=== PATIENT | female | born 1980 | race Caucasian/White ===

== ENCOUNTER 2024-10-23 12:30 | Outpatient (RCR) | payer BC, SELFPAY ==
--- NOTE | 2024-09-04 16:15 | OTOPEVAL1 ---
Assessment and note entered by Juanita Cooper, OT Evaluation Information Assessment Status Evaluation Diagnosis CVA ICD-10 Condition Codes (OT) Pain in left hand M79.642,Generalized muscle weakness M62.81 Other ICD-10 Condition Codes ( I63.9 OT) Onset 07/19/24 Subjective Information Pt. reports having stroke in July of 2024, pt. was in acute rehab for 14 days. Pt. returned home after this. Pt. states, I'm left handed, there are a lot of thing I can't do. Pt. reports she has difficulty opening jars, button her pants, tying her shoes, shaving her L armpit can't assist in management of granddaughters care including changing her diaper. Pt. is L hand dominant, reports she has to compensate for all activities with use of R UE. Pt. was previously independent in all activities, including working fulltime at [employer] and driving. Pt. was previously cooking, now can only make food in microwave. Pt. states she wants to be able to go back to work, be able to case picker her granddaughter. Reported Pain Level Pain Score 7: Self Report Assessment OT Clinical Summary Pt. is 44 year old F, presenting with limitations in L UE strength, ROM, coordination, dexterity, fine motor control, and overall functional use, as well as pain from swelling mechanical dysfunction as a result of CVA 07/19/24. Pt. demonstrates ROM WFL at shoulder and elbow, but reports inconsistency in functional use and fatigues easily, with wrist and hand displaying decreased ROM, with mild flexor tone and swelling. Pt. 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 Pt. reports significant decrease incapacity to participate in ADLs, IADLs, work, and functional capacity in general. Pt. will benefit from skilled OT services including therapeutic exercise, neuroreducation, sensory integrative techniques, and therapeutic activities to regain greatest functional use of L UE. Plan of Care Interventions Therapeutic Exercise,Manual Therapy,Neuro Re- education,Therapeutic Activities,Sensory Integrative Techniques OT Services Indicated Yes These treatments will address the objective and functional deficits as defined above. The patient will be advanced safely and appropriately in order for the patient to progress towards his/her prior level of function. Additional exercises will be introduced and as well as a comprehensive home exercise program upon discharge, if needed, ?to ensure carryover of functional gains achieved in the clinic. This treatment plan has been reviewed and agreement upon by the patient.
--- NOTE | 2024-09-04 16:16 | OPREHPOC ---
Outpatient Therapy Plan of Care This is a Multidisciplinary Plan of Care that may contain components documented by all disciplines (PT, OT, and ST.) OT Problem 1 OT Problem #1 Knowledge Deficit OT Goal 1 Goal / Goal Update Pt. will demonstrate independent participation in HEP Target Visit 10 OT Problem 2 OT Problem #2 Impaired Strength OT Goal 1 Goal / Goal Update Pt. will increase overall L UE strength as measured by increased electrophysiology nurse practitioner strength to 10 lbs Target Visit 10 OT Problem 3 OT Problem #3 Impaired Coordination OT Goal 1 Goal / Goal Update Pt. will demonstrate ability to manipulate small objects for functional activities with L fingers as demonstrated by completion of 9 hole peg test Target Visit 20 OT Problem 4 OT Problem #4 Impaired Range of Motion OT Goal 1 Goal / Goal Update Pt. will demonstrate increased active ROM in all joints by 10 degrees Target Visit 20
--- NOTE | 2024-09-12 11:11 | BUSTOPEVAL1 ---
Assessment and note entered by Indu Fine, SEQUINS SPOOLER Evaluation Information Assessment Status Evaluation Diagnosis CVA ICD-10 Condition Codes (ST) Cognitive Deficits following cerebral infarction I69.31 Subjective Information Patient was referred for a skilled ST evaluation due to continued cognitive difficulties post CVA on 07-19-24. She was in acute rehab for 14 days and then returned home with her daughter who she is currently living with due to significant difficulties physically post stroke. The patient reported that she in unable to work due to her weakness in her left arm and hand along with cognitive-communication deficits. She continues to have difficulty with her memory impacting her ability to function with least amount of assistance and return safely to PLOF. She stated that she feels her memory is starting to improve daily but continues to struggle to recall recent events. Her daughter reported that she often has to repeat herself due to patient being unable to recall what was told to her. Reported Pain Level Pain Score 5: Self Report Pain Score 7: Self Report Assessment ST Clinical Summary Patient was referred for a skilled ST evaluation due to continued difficulties with cognition post CVA on 07-19-24. She was in acute rehab for 14 days and then moved in with her daughter due to difficulties cognitively and physically post CVA. 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 At this time she is unable to work and continues to have difficulty with memory and function in her left hand. Her overall goal is to return to her job and be able to live independently again. Throughout the assessment the patient spoke at the conversational level with occasional pauses due to difficulty with attention and auditory processing skills. The MMSE was given during the session with a score of 29/30. The [facility] Adult Language evaluation was given with deficits noted in; following 3 step directions, moderate and complex paragraph retention, and reading comprehension at the complex sentence level. The Cognitive evaluation was given with mild deficits noted in immediate memory, recent memory, and temporal orientation skills. The patient currently feels that her memory continues to impact her ability to safely and functionally carry out daily tasks. She reported that this is a big change from her PLOF. She often gets frustrated when unable to remember something and feels that she is always asking others to repeat things in order for her to remember. Skilled ST treatment is recommended to target high level problem solving, attention, organizational skills, and memory to continue to improve patient's cognitive-communication function to return to PLOF with least amount of assistance . Recommendation for skilled ST treatment 1-2x/ week for 10 visits. Plan of Care Interventions Treatment for Cognitive Function Treatment Frequency and 1-2x/week for 10 visits Duration These treatments will address the objective and functional deficits as defined above. The patient will be advanced safely and appropriately in order for the patient to progress towards his/her prior level of function. Additional exercises will be introduced and as well as a comprehensive home exercise program upon discharge, if needed, ?to ensure carryover of functional gains achieved in the clinic. This treatment plan has been reviewed and agreement upon by the patient.
--- NOTE | 2024-09-12 11:14 | OPREHPOC ---
Outpatient Therapy Plan of Care This is a Multidisciplinary Plan of Care that may contain components documented by all disciplines (PT, OT, and ST.) OT Problem 1 OT Problem #1 Knowledge Deficit OT Goal 1 Goal / Goal Update Pt. will demonstrate independent participation in HEP Target Visit 10 OT Problem 2 OT Problem #2 Impaired Strength OT Goal 1 Goal / Goal Update Pt. 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 will demonstrate ability to manipulate small objects for functional activities with L fingers as demonstrated by completion of 9 hole peg test Target Visit 20 OT Problem 4 OT Problem #4 Impaired Range of Motion OT Goal 1 Goal / Goal Update Pt. will demonstrate increased active ROM in all joints by 10 degrees Target Visit [address] Problem #[address] Goal 1 Goal / Goal Update 1. Patient will participate in home programming to promote carryover/generalization of skills to home environment. Target Visit [address] Problem #[address] Goal 1 Goal / Goal Update Memory: 1. Patient will complete immediate and recent memory tasks with 90% accuracy and minimal cues. 2. Patient will complete delayed memory tasks ( recalling information after a few minutes, recalling words with delay in presentation) with 90% accuracy and minimal cues. 3. Patient will complete moderate/complex paragraph retention tasks with 90% accuracy and minimal cues to improve cognitive skills for more complex tasks. Target Visit [address] Problem #[address] Goal 1 Goal / Goal Update Reading comprehension: 1. Patient will complete complex sentence level comprehension tasks with 90% accuracy and minimal cues. Functional problem solving/mathematical: 1. Patient will complete moderate/complex functional mathematical tasks with 90% accuracy and minimal cues. Target Visit 10
--- NOTE | 2024-09-27 13:34 | OPREHPOC ---
Outpatient Therapy Plan of Care This is a Multidisciplinary Plan of Care that may contain components documented by all disciplines (PT, OT, and ST.) PT Problem 1 PT Problem #1 Knowledge Deficit PT Goal 1 Goal / Goal Update *independent with HEP Target Visit 8 PT Problem 2 PT Problem #2 Impaired Strength PT Goal 1 Goal / Goal Update 1*increase strength of L LE to 4+/5, to improve gait and balance skills 2* with standing L toe taps on 5 step, 10 reps, no toe catch 3* standing to sitting transfer without plopping into chair/good control of motion Target Visit 8 PT Problem 3 PT Problem #3 Impaired Functional Mobility PT Goal 1 Goal / Goal Update 1* 2 minute walking test distance of 550' 2* up/down 12 steps without hand railing, independent 3* Mckeon balance/gait score of 56/56, to improve mobility and safety 4* with walking, pt ambulate in straight path, reports NO hitting mendoza on the L side Target Visit 8 OT Problem 1 OT Problem #1 Knowledge Deficit OT Goal 1 Goal / Goal Update Pt. will demonstrate independent participation in HEP Target Visit 10 OT Problem 2 OT Problem #2 Impaired Strength OT Goal 1 Goal / Goal Update Pt. will increase overall L UE strength as measured by increased supervisor edging strength to 10 lbs Target Visit 10 OT Problem 3 OT Problem #3 Impaired Coordination OT Goal 1 Goal / Goal Update Pt. will demonstrate ability to manipulate small objects for functional activities with L fingers as demonstrated by completion of 9 hole peg test Target Visit 20 OT Problem 4 OT Problem #4 Impaired Range of Motion OT Goal 1 Goal / Goal Update Pt. will demonstrate increased active ROM in all joints by 10 degrees Target Visit [address] Problem #[address] Goal 1 Goal / Goal Update 1. Patient will participate in home programming to promote carryover/generalization of skills to home environment. Target Visit [address] Problem #[address] Goal 1 Goal / Goal Update Memory: 1. Patient will complete immediate and recent memory tasks with 90% accuracy and minimal cues. 2. Patient will complete delayed memory tasks ( recalling information after a few minutes, recalling words with delay in presentation) with 90% accuracy and minimal cues. 3. Patient will complete moderate/complex paragraph retention tasks with 90% accuracy and minimal cues to improve cognitive skills for more complex tasks. Target Visit [address] Problem #[address] Goal 1 Goal / Goal Update Reading comprehension: 1. Patient will complete complex sentence level comprehension tasks with 90% accuracy and minimal cues. Functional problem solving/mathematical: 1. Patient will complete moderate/complex functional mathematical tasks with 90% accuracy and minimal cues. Target Visit 10
--- NOTE | 2024-09-27 13:34 | PTOPEVAL1 ---
Assessment and note entered by Tiffany Hernandez, PT Evaluation Information Assessment Status Evaluation ICD-10 Condition Codes (PT) Difficulty Walking R26.2,Abnormalities of gait and mobility R26.9,Weakness R53.1 Other ICD-10 Condition Codes ( cerebral infarct I 63.9 PT) Onset 07-19-24 Subjective Information had CVA, when having carotid artery surgery; L side weakness. had in pt rehab, d/c to home 08-15-24; have not been doing any leg exercises; with walking, bump into mendoza on her L side, have not had any falls; L hand dominant; use cane when going out on uneven ground. 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 She also has OT and Speech Therapy services. Prior to onset, she worked and was living independently. Now, she is living with her daughter and is not working or driving. She reports use of L knee brace and cane PRN--did not have them for the evaluation session. With the evaluation, she has decreased strength and motor control of L LE; single leg standing on R is 8 and L is 3 seconds and unsteady; Mckeon balance score of 49/56; 2 minute walking test distance of 475'; gait pattern with decreased stance phase on L and decreased motor control of trunk and hips, with lateral trunk motion; on stairs uses one hand railing. Skilled PT services are indicated for therapeutic exercises and activities to increase LE strength, gait and balance skills, to improve mobility and activity tolerance. Education for HEP and safety with mobility. Plan of Care Interventions Gait Training,Neuro Re-education,Patient/Caregiver Education,Therapeutic Activities,Therapeutic Exercise PT Services Indicated Yes Treatment Frequency and 1-2x/wk for 8 visits Duration These treatments will address the objective and functional deficits as defined above. The patient will be advanced safely and appropriately in order for the patient to progress towards his/her prior level of function. Additional exercises will be introduced and as well as a comprehensive home exercise program upon discharge, if needed, ?to ensure carryover of functional gains achieved in the clinic. This treatment plan has been reviewed and agreement upon by the patient.
--- NOTE | 2024-10-18 12:28 | OTOPPROG ---
Assessment and note entered by Juanita Cooper, OT Evaluation Information Assessment Status Progress Diagnosis CVA ICD-10 Condition Codes (OT) Pain in left hand M79.642,Generalized muscle weakness M62.81 Other ICD-10 Condition Codes ( I63.9 OT) Onset 07/19/24 Subjective Information Pt. reports, I fell last night, I was walking to the bathroom and I fell on my hand (points to L hand), I have knot in my elbow too. Pt. initially reports not sure, when asked how she feels she is progressing and what activities are getting easier. Pt. then recalled changing her granddaughters diaper, carrying her granddaughter down the stairs with both hands, stating she first took steps then sat down on the stairs to scoot down while holding her. Pt. reports she was able to catch a neighbors cat who was loose. Pt. reports she is still compensating with R hand, but has been able to make herself a burrito and spread cream cheese on a bagel, using R hand to perform the fine motor parts of task while stabilizing with L hand and UE. Pt. reports she wore her resting hand splint on 2 nights sine she initally brought it in, but displays frustration when asked if she remembers if it affects her pain , stating I don't remember, my short term doesn' t work. I don't remember if I have pain or not. I reports she does not complete putty hand exercises at home because it is too painful Assessment OT Clinical Summary Pt. is 44 year old F, presents for 8th visit for progress note with continued limitation in L UE strength, ROM, coordination, dexterity, fine motor control, and overall functional use, as well as pain, as a result of CVA 07/19/24. Pt. demonstrates limited increase in measurable strength with standardized testing such as with dynamometer or 9 hole peg test, or use of resistance putty due to pain with use but displays increasing tolerance for functional use during activities including use of various hand prehension types for picking up small items such as 2 cm foam blocks. Pt. continues to demonstrates ROM WFL at shoulder and elbow, but reports inconsistency in functional use and fatigues easily, with increasing but inconsistent wrist, hand, and finger ROM with focused attention, despite with mild flexor tone and swelling. Pt. will benefit from skilled OT services including therapeutic exercise, neuroreducation, sensory integrative techniques, and therapeutic activities to regain greatest functional use of L UE. Plan of Care Interventions Therapeutic Exercise,Manual Therapy,Neuro Re- education,Therapeutic Activities,Sensory Integrative Techniques OT Services Indicated Yes Treatment Frequency and 2 x/week for 10 visits Duration These treatments will address the objective and functional deficits as defined above. The patient will be advanced safely and appropriately in order for the patient to progress towards his/her prior level of function. Additional exercises will be introduced and as well as a comprehensive home exercise program upon discharge, if needed, ?to ensure carryover of functional gains achieved in the clinic. This treatment plan has been reviewed and agreement upon by the patient.
--- NOTE | 2024-10-18 12:32 | OPREHPOC ---
Outpatient Therapy Plan of Care This is a Multidisciplinary Plan of Care that may contain components documented by all disciplines (PT, OT, and ST.) PT Problem 1 PT Problem #1 Knowledge Deficit PT Goal 1 Goal / Goal Update *independent with HEP Target Visit 8 PT Problem 2 PT Problem #2 Impaired Strength PT Goal 1 Goal / Goal Update 1*increase strength of L LE to 4+/5, to improve gait and balance skills 2* with standing L toe taps on 5 step, 10 reps, no toe catch 3* standing to sitting transfer without plopping into chair/good control of motion Target Visit 8 PT Problem 3 PT Problem #3 Impaired Functional Mobility PT Goal 1 Goal / Goal Update 1* 2 minute walking test distance of 550' 2* up/down 12 steps without hand railing, independent 3* Mckeon balance/gait score of 56/56, to improve mobility and safety 4* with walking, pt ambulate in straight path, reports NO hitting mendoza on the L side Target Visit 8 OT Problem 1 OT Problem #1 Knowledge Deficit OT Goal 1 Goal / Goal Update 1) Pt. will demonstrate independent participation in HEP 10/18 Progress 1) Not met, pt reports putty causes pain in hands, continue with goal Target Visit 20 Progress Not Met OT Problem 2 OT Problem #2 Impaired Strength OT Goal 1 Goal / Goal Update 1) Pt. will increase overall L UE strength as measured by increased applications tester strength to 10 lbs 10/18 Progress 1) Not met, continue with goal Target Visit 30 Progress Not Met OT Problem 3 OT Problem #3 Impaired Coordination OT Goal 1 Goal / Goal Update 1)Pt. will demonstrate ability to manipulate small objects for functional activities with L fingers as demonstrated by completion of 9 hole peg test 10/18 Progress 1) Not met, continue with goal Target Visit 20 OT Problem 4 OT Problem #4 Impaired Range of Motion OT Goal 1 Goal / Goal Update Pt. will demonstrate increased active ROM in all joints by 10 degrees Target Visit 20 OT Problem 5 OT Problem #5 Pain OT Goal 1 Goal / Goal Update New Goal 10/18 1) Pt. will report wear of resting hand split 5/7 nights per week and use of active assist/passive ROM exercises to reduce pain to 2/10 4/[address] Problem #[address] Goal 1 Goal / Goal Update 1. Patient will participate in home programming to promote carryover/generalization of skills to home environment. Target Visit [address] Problem #[address] Goal 1 Goal / Goal Update Memory: 1. Patient will complete immediate and recent memory tasks with 90% accuracy and minimal cues. 2. Patient will complete delayed memory tasks ( recalling information after a few minutes, recalling words with delay in presentation) with 90% accuracy and minimal cues. 3. Patient will complete moderate/complex paragraph retention tasks with 90% accuracy and minimal cues to improve cognitive skills for more complex tasks. Target Visit [address] Problem #[address] Goal 1 Goal / Goal Update Reading comprehension: 1. Patient will complete complex sentence level comprehension tasks with 90% accuracy and minimal cues. Functional problem solving/mathematical: 1. Patient will complete moderate/complex functional mathematical tasks with 90% accuracy and minimal cues. Target Visit 10
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
--- NOTE | 2024-10-25 12:35 | PCSTNOTE ---
Patient called & cancelled scheduled appointment this date due to sick
--- NOTE | 2024-10-30 12:56 | PCPTNOTE ---
Cancelled, pt in hospital d/t seizure activity pr front office. AKS
--- NOTE | 2024-11-01 13:05 | PCSTNOTE ---
Patient called & cancelled scheduled appointment this date due to hospital
--- NOTE | 2024-11-15 12:30 | STOPDC ---
Assessment and note entered by Elva Strauss PUMP INSTALLATION AND SERVICER Evaluation Information Assessment Status Discharge - Pt Not Present Assessment ST Clinical Summary Patient was referred for a skilled ST evaluation due to continued difficulties with cognition post CVA on 07-19-24. She was in acute rehab for 14 days and then moved in with her daughter due to difficulties cognitively and physically post CVA. 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 At this time she is unable to work and continues to have difficulty with memory and function in her left hand. Her overall goal is to return to her job and be able to live independently again. Throughout the assessment the patient spoke at the conversational level with occasional pauses due to difficulty with attention and auditory processing skills. The MMSE was given during the session with a score of 29/30. The [facility] Adult Language evaluation was given with deficits noted in; following 3 step directions, moderate and complex paragraph retention, and reading comprehension at the complex sentence level. The Cognitive evaluation was given with mild deficits noted in immediate memory, recent memory, and temporal orientation skills. The patient currently feels that her memory continues to impact her ability to safely and functionally carry out daily tasks. She reported that this is a big change from her PLOF. She often gets frustrated when unable to remember something and feels that she is always asking others to repeat things in order for her to remember. Skilled ST treatment is recommended to target high level problem solving, attention, organizational skills, and memory to continue to improve patient's cognitive-communication function to return to PLOF with least amount of assistance . Recommendation for skilled ST treatment 1-2x/ week for [address] visits. [address] Services Indicated Yes
--- NOTE | 2024-11-17 15:04 | PTOPDC ---
Assessment and note entered by Tiffany Hernandez, PT Assessment Status Discharge - Pt Not Present ICD-10 Condition Codes (PT) Difficulty Walking R26.2,Abnormalities of gait and mobility R26.9,Weakness R53.1 Other ICD-10 Condition Codes ( cerebral infarct I 63.9 PT) Onset 07-19-24 Subjective Information pt was not seen this date. Assessment PT Clinical Summary Sterling has received 5 PT sessions, from September 27 to October 23. She then called/canceled 2 appointments due to illness and then admitted to the hospital. Discharge PT due to hospitalization. The goals were not addressed. Plan of Care PT Services Indicated No
--- NOTE | 2024-11-20 08:15 | OTOPDC ---
Assessment and note entered by Juanita Cooper, OT Evaluation Information Assessment Status Discharge - Pt Not Present Diagnosis CVA ICD-10 Condition Codes (OT) Pain in left hand M79.642,Generalized muscle weakness M62.81 Other ICD-10 Condition Codes ( I63.9 OT) Onset 07/19/24 Subjective Information Pt. not present. Discharging due to hospitalization. Assessment OT Clinical Summary PT has been seen for 8 OT sessions, from 09/04/24- 10/18/24, pt. admitted to hospital due to illness. Discharging on this date due to hospitalization. OT goals not met. Plan of Care OT Services Indicated No
== END 2024-11-20 10:57 | disposition home or self-care (01) ==
LOC: ANHPT 12:30
PROVIDERS: PCP Emergency Medicine; Visit Provider Emergency Medicine
DX: I63.9 Cerebral infarction, unspecified (principal); I10 Essential (primary) hypertension; M79.642 Pain in left hand; M62.81 Muscle weakness (generalized)
CPT/HCPCS: 92507; 92523; 96125; 97110; 97112; 97116; 97140; 97161; 97166; 97530